=== PATIENT | female | born 1965 | race Two or more races ===

== ENCOUNTER 2023-03-25 04:07 | Day surgery (SDC) | payer OTHER ==
[2023-03-18 09:25] VITALS: BMI 27.4
[2023-03-25] MEDS ORDERED: LIDOCAINE VISCOUS 2% ORAL/TOP 15 ML UNIT-DOSE CUP ONE (08:04)
[2023-03-25 08:40] VITALS: TEMP 98.6
[2023-03-25 09:26] VITALS: BP 132/70; PULSE 65; RESP 15
== END 2023-03-25 09:22 | disposition home or self-care (01) ==
LOC: JASU-ENDO 04:07
PROVIDERS: ATTEND Internal Medicine Gastroenterology
PROC: 0DB68ZX Excision of Stomach, Via Natural or Artificial Opening Endoscopic, Diagnostic (ICD-10-PCS; 2023-03-25)
PROC: 0DB98ZX Excision of Duodenum, Via Natural or Artificial Opening Endoscopic, Diagnostic (ICD-10-PCS; principal; 2023-03-25 08:00)
DX: K29.50 Unspecified chronic gastritis without bleeding (principal); B96.81 Helicobacter pylori [H. pylori] as the cause of diseases classified elsewhere; K25.9 Gastric ulcer, unspecified as acute or chronic, without hemorrhage or perforation; K29.80 Duodenitis without bleeding
CPT/HCPCS: 88305-TC; 88342-TC

== ENCOUNTER 2023-03-30 04:42 | Day surgery (SDC) | payer OTHER ==
[2023-03-25 11:51] VITALS: BMI 27.4
[2023-03-30 10:18] VITALS: BP 130/70; PULSE 70; RESP 16; TEMP 97.8
== END 2023-03-30 10:19 | disposition home or self-care (01) ==
LOC: JASU-ENDO 04:42
PROVIDERS: ATTEND Internal Medicine Gastroenterology
PROC: 0DBN8ZX Excision of Sigmoid Colon, Via Natural or Artificial Opening Endoscopic, Diagnostic (ICD-10-PCS; principal; 2023-03-30 09:30)
DX: Z12.11 Encounter for screening for malignant neoplasm of colon (principal); K63.5 Polyp of colon; K64.8 Other hemorrhoids
CPT/HCPCS: 88305-TC